=== PATIENT | male | born 1955 | race Caucasian/White ===

== ENCOUNTER 2016-12-01 08:04 | Day surgery (SDC) | payer OTHER ==
[2016-12-01] MEDS ORDERED: Sensorcaine 0.25% 10 ML ONE (08:30)
[2016-12-01] MEDS ORDERED: Lactated Ringers 1,000 ML IV ONE (08:30)
[2016-12-01] MEDS ORDERED: KEFZOL 1 GM ONE (08:31)
[2016-12-01] MEDS ORDERED: CEFAZOLIN 2 GM-D5W BAG** 50 ML IV ONE ×2 (08:53→08:56)
[2016-12-01] MEDS ORDERED: Lactated Ringers 0 ML IV ONE (08:56)
[2016-12-01] MEDS ORDERED: Lactated Ringers 1,000 ML IV SCH (09:00)
[2016-12-01 09:15] VITALS: BP 153/95
[2016-12-01] MEDS ORDERED: Xopenex 1.25 MG/0.5 ML UD NEBULE IH ONE ×2 (09:19→09:22)
[2016-12-01] MEDS ORDERED: Sodium Chloride 3 ML UD NEBULES IH ONE (09:22)
[2016-12-01 10:35] VITALS: PULSE 71; O2SAT 96
== END 2016-12-01 10:13 | disposition home or self-care (01) ==
LOC: SDC 08:04
PROVIDERS: ATTEND Surgery
DX: K40.90 Unilateral inguinal hernia, without obstruction or gangrene, not specified as recurrent (principal); Z53.09 Procedure and treatment not carried out because of other contraindication; R05 Cough
CPT/HCPCS: 94640; J0690

== ENCOUNTER 2017-01-05 11:37 | Day surgery (SDC) | payer OTHER ==
[~2017-01-05 11:37] MED LIST: DILAUDID 2 MG INJECTION IV ONE; DIPRIVAN 200 MG/20 ML IV ONE; Decadron 4 MG INJ IV ONE; Ephedrine Sulfate 50 MG/ML IV ONE; KEFZOL 1 GM ONE; Lactated Ringers 1,000 ML IV ONE; Naropin 0.5% 30 ML VIAL IJ ONE; SUBLIMAZE 100 MCG/2 ML IV ONE; Sensorcaine 0.25% 10 ML ONE; TORAdol 30 mg Injection IV ONE; Versed 2 MG/2 ML Injection IV ONE; Zofran 4 MG/2 ML VIAL IV ONE
[2017-01-05] MEDS ORDERED: CEFAZOLIN 2 GM-D5W BAG** 50 ML IV ONE ×2 (11:50→11:52)
[2017-01-05] MEDS ORDERED: Lactated Ringers 1,000 ML IV SCH (12:00)
[2017-01-05] MEDS ORDERED: Lactated Ringers 1,000 ML IV ONE ×2 (12:03→16:20)
--- NOTE | 2017-01-05 13:41 | HP ---
DATE OF SURGERY: 01/05/2017 ADMISSION DIAGNOSIS: Right inguinal hernia. ANTICIPATED PROCEDURE: Right inguinal herniorrhaphy with mesh. HISTORY OF PRESENT ILLNESS: The patient has symptomatic right inguinal hernia and presents for repair. PAST MEDICAL HISTORY: ALLERGIES: NONE. MEDICATIONS: None. PAST SURGICAL HISTORY: Knee surgery. SOCIAL HISTORY: Negative. FAMILY HISTORY: Negative. REVIEW OF SYSTEMS: Negative. PHYSICAL EXAMINATION: VITAL SIGNS: Normal. CHEST: Clear. COR: Regular. ABDOMEN: Right inguinal hernia. IMPRESSION: Symptomatic right inguinal hernia. PLAN: Repair.
[2017-01-05] MEDS ORDERED: MEFOXIN 2 GM PREMIX** 50 ML IV ONE (13:45)
[2017-01-05 19:01] VITALS: O2SAT 92
[2017-01-05 20:49] VITALS: BP 142/92; PULSE 84
--- NOTE | 2017-01-06 08:51 | OP ---
SURGERY DATE/TIME: 01/05/2017 1502 PREOPERATIVE DIAGNOSIS: Large right inguinal hernia. POSTOPERATIVE DIAGNOSIS: Large right inguinal hernia. PROCEDURE: Right inguinal hernia with mesh. SURGEON: Papito Reardon M.D. ANESTHESIA: General. COMPLICATIONS: None. CONDITION: Stable. INDICATION: A patient requiring herniorrhaphy. DESCRIPTION OF PROCEDURE: DESCRIPTION OF PROCEDURE: Taken to surgery. General anesthetic. Routine prep and drape. Time out performed. Curvilinear incision. 0.25% Marcaine infiltrated. External oblique opened. An 8 inch sac was present. It was able to be reduced. There was a small bowel loop that was able to be reduced. It was high suture ligated under direct visualization with #0 Prolene. It was reinforced with 1 x 4 mesh and secured in David's ligament-type fashion throughout making sure not to entrap any underlying nerve fibers. The cord and the ilioinguinal nerve laid back in natural position. External oblique closed with 0 Vicryl. Malik fascia closed with 3-0 Vicryl. Skin closed with 4-0 Vicryl. Steri-Strips applied. The patient tolerated the procedure satisfactorily.
== END 2017-01-05 20:45 | disposition home or self-care (01) ==
LOC: SDC 11:37
PROVIDERS: ATTEND Surgery
PROC: 0YU50JZ Supplement Right Inguinal Region with Synthetic Substitute, Open Approach (ICD-10-PCS; principal; 2017-01-05)
DX: K40.90 Unilateral inguinal hernia, without obstruction or gangrene, not specified as recurrent (principal); J44.9 Chronic obstructive pulmonary disease, unspecified; F17.210 Nicotine dependence, cigarettes, uncomplicated
CPT/HCPCS: 00830; 36415; 88302; C1781; J0690; J0694; J1100; J1170; J1885; J2250; J2405; J2704; J2795; J3010